=== PATIENT | male | born 1985 | race Caucasian/White ===

== ENCOUNTER 2016-09-16 11:55 | Emergency (ER) | payer OTHER ==
[~2016-09-16] VITALS: Wt 70.0 kg
[~2016-09-16 11:55] MED LIST: HYDR-3498 PO; LOPE2CAP PO; ONDA4TAB8 PO
[2016-09-16] MEDS ORDERED: SOD CHLORIDE 0.9% 1,000 ML IV STA (13:39)
[2016-09-16] MEDS ORDERED: ONDANSETRON 4 MG INJ IV STA (13:39)
[2016-09-16] MEDS ORDERED: LIDOCAINE/MYLANTA 40 ML BTL PO ONE (14:00)
[2016-09-16 14:23] LABS: BASOPHILS % 0.1 % (0.0-2.0); HEMATOCRIT 49.7 % (42.0-52.0); HEMOGLOBIN 17.2 g/dl (14.0-18.0); LYMPHOCYTES # 0.8 10^3/ul (0.8-2.9); LYMPHOCYTES % 10.4 % (15.0-51.0); MEAN CORPUSCULAR HEMOGLOBIN 31.1 pg (29.0-33.0); MEAN CORPUSCULAR HGB CONC 34.6 g/dl (32.0-37.0); MEAN CORPUSCULAR VOLUME 89.9 fl (82.0-101.0); MEAN PLATELET VOLUME 8.8 fl (7.4-10.4); MONOCYTE # 0.3 10^3/ul (0.3-0.9); MONOCYTES % 3.5 % (0.0-11.0); PLATELET COUNT 244 10^3/UL (140-440); RED BLOOD COUNT 5.52 10^6/ul (4.70-6.10); RED CELL DISTRIBUTION WIDTH 11.9 % (11.5-14.5); UNCORRECTED WBC 8.1 10^3/ul (4.8-10.8); WHITE BLOOD COUNT 8.1 10^3/ul (4.8-10.8)
[2016-09-16 14:25] LABS: CONDITION 1
[2016-09-16 14:34] LABS: ALBUMIN 4.9 g/dl (3.3-4.9); POTASSIUM 4.3 mmol/L (3.5-5.1)
[2016-09-16 14:36] LABS: BILIRUBIN,INDIRECT 0.4 mg/dl (0-1.1); BILIRUBIN,TOTAL 0.4 mg/dl (0.2-1.3); CREATININE 0.84 mg/dl (0.61-1.24)
[2016-09-16 14:37] LABS: ALBUMIN/GLOBULIN RATIO 1.44; CALCIUM 10.2 mg/dl (8.4-10.2); TOTAL PROTEIN 8.3 g/dl (6.1-8.1)
[2016-09-16] MEDS ORDERED: ONDA8TAB14 PO (14:53)
[2016-09-16] MEDS ORDERED: ACET500C5 PO (14:53)
--- NOTE | 2016-09-16 15:04 | ERD ---
ER Documentation Chief Complaint Date/Time DATE: 09/16/16 TIME: 15:02 Chief Complaint VOMITING SINCE LAST NIGHT NO ABDOMINAL PAIN, NO DIARRHEA NOTED HPI This 31-year-old male complains of vomiting since late last night with epigastric abdominal pain. Patient admits to drinking approximately 18 beers last night. Denies diarrhea, fevers, blood. Denies any right-sided or lower abdominal pain. Denies any foreign travel or sick contacts. ROS All systems reviewed and are negative except as per history of present illness. Medications Home Meds Active Scripts Acetaminophen* (Tylophen*) 500 Mg Capsule, 1 CAP PO Q6H Y for PAIN AND OR ELEVATED TEMP, #10 CAP Prov:TEE FISHMAN MD 09/16/16 Ondansetron (Ondansetron Odt) 8 Mg Tab.rapdis, 8 MG PO Q6H Y for NAUSEA AND/OR VOMITING, #8 TAB Prov:TEE FISHMAN MD 09/16/16 Ondansetron Hcl* (Zofran*) 4 Mg Tablet, 4 MG PO Q6H for NAUSEA AND/OR VOMITING, #30 TAB Prov:Kaylah Rodriguez PA-C 05/27/16 Hydrocodone Bit-Acetaminophen* ([place]*) 5-325 Mg Tab, 1 TAB PO Q6 Y for PAIN, # 7 TAB Prov:GEORGE MILLER DO 02/20/16 Loperamide Hcl* (Imodium*) 2 Mg Capsule, 2 MG PO .AFTER EA LOOSE BM Y for DIARRHEA, #10 TAB Prov:GEORGE MILLER DO 02/20/16 Allergies Allergies: Coded Allergies: No Known Drug Allergies (Verified Allergy, Unknown, 02/20/16) PMhx/Soc Medical and Surgical Hx: pt denies Medical Hx, pt denies Surgical Hx History of Surgery: No Anesthesia Reaction: No Hx Neurological Disorder: No Hx Respiratory Disorders: No Hx Cardiac Disorders: No Hx Psychiatric Problems: No Hx Miscellaneous Medical Probl: No Hx Alcohol Use: Yes (LAST NIGHT) Hx Substance Use: Yes (MARIJUANA YESTERDAY) Hx Tobacco Use: Yes Smoking Status: Current every day smoker Physical Exam Vitals Vital Signs Date Time Temp Pulse Resp B/P Pulse Ox O2 Delivery O2 Flow Rate FiO2 09/16/16 11:59 98.1 63 22 140/89 96 Physical Exam Const: [] Alert, [id number] Head: Atraumatic Eyes: Normal Conjunctiva ENT: Normal External Ears, Nose and Mouth. Neck: Full range of motion..~ No meningismus. Resp: Clear to auscultation bilaterally Cardio: Regular rate and rhythm, no murmurs Abd: Soft, minimal epigastric tenderness, non distended. Normal bowel sounds Skin: No petechiae or rashes Back: No midline or flank tenderness Ext: No cyanosis, or edema Neur: Awake and alert Psych: Normal Mood and Affect Result Diagram: 09/16/16 1357 09/16/16 1357 Results 24 hrs Laboratory Tests Test 09/16/16 13:57 Alanine Aminotransferase (ALT/SGPT) 45IU/L Albumin 4.9g/dl Albumin/Globulin Ratio 1.44 Alkaline Phosphatase 101IU/L Anion Gap 21 Aspartate Amino Transf (AST/SGOT) 48IU/L Basophils # 0.010^3/ul Basophils % 0.1% Blood Urea Nitrogen 15mg/dl Calcium Level 10.2mg/dl Carbon Dioxide Level 29mmol/L Chloride Level 100mmol/L Creatinine 0.84mg/dl Direct Bilirubin 0.00mg/dl Eosinophils # 0.010^3/ul Eosinophils % 0.0% Globulin 3.40g/dl Glucose Level 126mg/dl Hematocrit 49.7% Hemoglobin 17.2g/dl Indirect Bilirubin 0.4mg/dl Lipase 129U/L Lymphocytes # 0.810^3/ul Lymphocytes % 10.4% Mean Corpuscular Hemoglobin 31.1pg Mean Corpuscular Hemoglobin Concent 34.6g/dl Mean Corpuscular Volume 89.9fl Mean Platelet Volume 8.8fl Monocytes # 0.310^3/ul Monocytes % 3.5% Neutrophils # 7.010^3/ul Neutrophils % 86.0% Nucleated Red Blood Cells # 0.010^3/ul Nucleated Red Blood Cells % 0.0/100WBC Platelet Count 62034^3/UL Potassium Level 4.3mmol/L Red Blood Count 5.5210^6/ul Red Cell Distribution Width 11.9% Sodium Level 146mmol/L Total Bilirubin 0.4mg/dl Total Protein 8.3g/dl White Blood Count 8.110^3/ul Current Medications Medications (Trade) Dose Ordered Sig/Js Route PRN Reason Start Time Stop Time Status Last Admin Dose Admin Sodium Chloride (NS) 1,000 ml @ 1,000 mls/hr Q1H STAT IV 09/16/16 13:39 09/16/16 14:38 DC 09/16/16 14:01 Ondansetron HCl (Zofran Inj) 4 mg ONCE STAT IV 09/16/16 13:39 09/16/16 13:42 DC 09/16/16 14:01 Miscellaneous Medication (Gi Cocktail (2)) 40 ml ONCE ONCE PO 09/16/16 14:00 09/16/16 14:02 DC 09/16/16 14:01 Procedures/MDM Patient presents with vomiting and epigastric abdominal pain. An IV was obtained patient was given Zofran 4 mg IV, GI cocktail CBC shows no acute abnormalities and CMP and lipase showed no acute abnormalities. Patient has benign abdomen on serial exam. Patient likely has symptoms due to alcohol intoxication or acute withdrawal symptoms. There is no signs or symptoms of delirium tremens, acute abdomen, obstruction, bleeding or sepsis. Patient will be discharged home with a course of Zofran, and Tylenol instructions for clear fluids, rest and avoid alcohol use. The patient was stable with no new complaints during the ER course. Clinically, there is no current evidence to suggest meningitis, sepsis, acute abdomen, pneumonia, acute coronary syndrome, pulmonary embolism, or any other emergent condition appearing to require further evaluation or hospitalization. The patient should certainly return for any new or worsening symptoms per the aftercare instructions. They should otherwise follow-up with her primary care doctor for reevaluation this week. Departure Diagnosis: Primary Impression: Abdominal pain Abdominal location: epigastric Qualified Code: R10.13 - Epigastric pain Additional Impression: Vomiting Vomiting type: unspecified Vomiting Intractability: non-intractable Nausea presence: with nausea Qualified Code: R11.2 - Non-intractable vomiting with nausea, unspecified vomiting type Condition: Stable Patient Instructions: Alcohol Overdose, Vomiting (6Y-Adult) Additional Instructions: Drink plenty of fluids and rest at home. Avoid alcohol use. Recheck for fevers , blood, new symptoms TEE FISHMAN MD Sep 16, 2016 15:04
[2016-09-16 15:22] VITALS: BP 136/90; PULSE 67; RESP 18; TEMP 98
[2016-09-16] MEDS ORDERED: FAMO-18 PO (19:50)
== END 2016-09-16 15:22 | disposition home or self-care (01) ==
LOC: FTE 11:55
DX: R10.13 Epigastric pain (principal); R11.2 Nausea with vomiting, unspecified; F17.210 Nicotine dependence, cigarettes, uncomplicated
CPT/HCPCS: 36415; 80053; 83690; 85025; 96374; J2405; J7030; Z7502; Z7610

== ENCOUNTER 2016-09-16 17:32 | Emergency (ER) | payer OTHER ==
[~2016-09-16] VITALS: Wt 77.0 kg
[~2016-09-16 17:32] MED LIST changes: +ACET500C5 PO; +ONDA8TAB14 PO
[2016-09-16] MEDS ORDERED: ONDANSETRON 4 MG INJ IM STA (18:24)
[2016-09-16] MEDS ORDERED: FAMOTIDINE 20 MG TAB PO ONE (18:30)
[2016-09-16] MEDS ORDERED: LIDOCAINE/MYLANTA 40 ML BTL PO ONE (18:30)
[2016-09-16] MEDS ORDERED: FAMO-18 PO (19:50)
--- NOTE | 2016-09-16 19:55 | ERD ---
ER Documentation Chief Complaint Date/Time DATE: 09/16/16 TIME: 19:51 Chief Complaint VOMITING FOR THE PAST DAY. NO RELEIF WITH IV FLUIDS. CONTINUED VOMITING HPI 31-year-old male with a past medical history of alcoholism presents to the ED for nausea and vomiting. States that he had one episode of nonbilious nonbloody vomiting after being discharged here in the hospital. Patient states that he was seen here earlier today and stated that he had no relief with taking Zofran at home. Reports that he has been drinking 12 cans of beer last night. States that when he drinks, he binge drinks peers. Reports that this is not daily. Denies any abdominal pain, chest pain, shortness of breath, wheezing, cough, fever, chills. States that earlier today when he drank the GI cocktail, it helped his symptoms tremendously. ROS All systems reviewed and are negative except as per history of present illness. Medications Home Meds Active Scripts Famotidine* (Pepcid*) 20 Mg Tablet, 20 MG PO BID, #30 TAB Prov:AMPARO WONG PA-C 09/16/16 Acetaminophen* (Tylophen*) 500 Mg Capsule, 1 CAP PO Q6H Y for PAIN AND OR ELEVATED TEMP, #10 CAP Prov:TEE PUGA MD 09/16/16 Ondansetron (Ondansetron Odt) 8 Mg Tab.rapdis, 8 MG PO Q6H Y for NAUSEA AND/OR VOMITING, #8 TAB Prov:TEE PUGA MD 09/16/16 Ondansetron Hcl* (Zofran*) 4 Mg Tablet, 4 MG PO Q6H for NAUSEA AND/OR VOMITING, #30 TAB Prov:Kaylah Rodriguez PA-C 05/27/16 Hydrocodone Bit-Acetaminophen* ([place]*) 5-325 Mg Tab, 1 TAB PO Q6 Y for PAIN, # 7 TAB Prov:GEORGE MILLER DO 02/20/16 Loperamide Hcl* (Imodium*) 2 Mg Capsule, 2 MG PO .AFTER EA LOOSE BM Y for DIARRHEA, #10 TAB Prov:GEORGE MILLER DO 02/20/16 Allergies Allergies: Coded Allergies: No Known Drug Allergies (Verified Allergy, Unknown, 02/20/16) PMhx/Soc Medical and Surgical Hx: pt denies Medical Hx, pt denies Surgical Hx History of Surgery: No Anesthesia Reaction: No Hx Neurological Disorder: No Hx Respiratory Disorders: No Hx Cardiac Disorders: No Hx Psychiatric Problems: No Hx Miscellaneous Medical Probl: No Hx Alcohol Use: Yes (LAST NIGHT) Hx Substance Use: Yes (MARIJUANA YESTERDAY) Hx Tobacco Use: Yes Smoking Status: Current every day smoker Physical Exam Vitals Vital Signs Date Time Temp Pulse Resp B/P Pulse Ox O2 Delivery O2 Flow Rate FiO2 09/16/16 18:03 98.8 76 20 154/85 98 Physical Exam Const: [id number], well-nourished. In no acute distress. Head: Atraumatic, normocephalic Eyes: Normal Conjunctiva without injection. No purulent discharge. ENT: Normal external ear, nose. Moist oropharynx without tonsillar exudates. Non -erythematous pharynx. Uvula midline. No drooling. No trismus. Neck: No cervical midline tenderness. Full range of motion. No meningismus. No cervical lymphadenopathy. No JVD. Resp: Clear to auscultation bilaterally. No wheezing, rhonchi, rales, or crackles. No accessory muscle use. No retractions. Cardio: Regular rate and rhythm. No murmurs, rubs or gallops. Abd: Soft, nontender, non distended. Normal bowel sounds. No palpable masses. No rebound tenderness. No guarding. Negative McBurney's point. Negative psoas sign. Negative obturator sign. Skin: No petechiae or rashes Back: No midline tenderness. No CVA tenderness. Ext: No cyanosis, or edema. Neur: Awake and alert. Normal gait. Normal coordination. Psych: Normal Mood and Affect Results 24 hrs Current Medications Medications (Trade) Dose Ordered Sig/Js Route PRN Reason Start Time Stop Time Status Last Admin Dose Admin Famotidine (Pepcid) 20 mg ONCE ONCE PO 09/16/16 18:30 09/16/16 18:31 DC 09/16/16 19:33 Miscellaneous Medication (Gi Cocktail (2)) 40 ml ONCE ONCE PO 09/16/16 18:30 09/16/16 18:31 DC 09/16/16 19:32 Ondansetron HCl (Zofran Inj) 4 mg ONCE STAT IM 09/16/16 18:24 09/16/16 18:27 DC 09/16/16 19:32 Procedures/MDM 31-year-old male with a past medical history of alcoholism presents to the ED complaining of nausea and vomiting after drinking beers last night. Patient is afebrile and nontoxic-appearing. Patient has normal vital signs. This case was discussed with my supervising physician, Dr. Yovana juarez who also saw patient earlier today. We treated patient here in the ED with 4 mg IM Zofran, GI cocktail, famotidine with relief of his symptoms. Patient had a successful p.o. challenge. Low suspicion for gastritis, GERD, peptic ulcer disease, cholecystitis, choledocholithiasis, cholangitis, pancreatitis, appendicitis, bowel obstruction, ileus, volvulus, nephrolithiasis, pyelonephritis, hepatitis, perforated viscus, diverticulitis, abdominal hernia, acute abdomen, mesenteric ischemia or other emergent conditions. Discharge medications: Famotidine. Take Tylenol and Zofran as needed which was prescribed by Dr. Puga, who saw patient earlier today. Follow up with primary care physician in 1-2 days for referral to supervisor lens generating. Instructed patient to return to the ED sooner for any worsening symptoms. Patient's questions were answered. Patient understood and agreed with discharge plan. Patient discharged stable. Departure Diagnosis: Primary Impression: Alcohol overdose Encounter type: initial encounter Injury intent: undetermined intent Qualified Code: T51.94XA - Alcohol overdose, undetermined intent, initial encounter Additional Impression: Nausea and vomiting Vomiting type: unspecified Vomiting Intractability: unspecified Qualified Code: R11.2 - Nausea and vomiting, intractability of vomiting not specified, unspecified vomiting type Condition: Stable Patient Instructions: Signs of Alcohol Addiction (Alcoholism), Alcoholism: Getting Help, Nausea and Vomiting-Adult, Alcohol Overdose Referrals: COMMUNITY CLINICS YOU HAVE RECEIVED A MEDICAL SCREENING EXAM AND THE RESULTS INDICATE THAT YOU DO NOT HAVE A CONDITION THAT REQUIRES URGENT TREATMENT IN THE EMERGENCY DEPARTMENT. FURTHER EVALUATION AND TREATMENT OF YOUR CONDITION CAN WAIT UNTIL YOU ARE SEEN IN YOUR DOCTORS OFFICE WITHIN THE NEXT 1-2 DAYS. IT IS YOUR RESPONSIBILITY TO MAKE AN APPOINTMENT FOR FOLOW-UP CARE. IF YOU HAVE A PRIMARY DOCTOR --you should call your primary doctor and schedule an appointment IF YOU DO NOT HAVE A PRIMARY DOCTOR YOU CAN CALL OUR PHYSICIAN REFERRAL HOTLINE AT IF YOU CAN NOT AFFORD TO SEE A PHYSICIAN YOU CAN CHOSE FROM THE FOLLOWING [facility] CL[facility] [address] [facility] [address] [facility] [address] [facility] [address] [facility] [address] [facility] [facility]. [address] [facility]. [facility] YOU HAVE RECEIVED A MEDICAL SCREENING EXAM AND THE RESULTS INDICATE THAT YOU DO NOT HAVE A CONDITION THAT REQUIRES URGENT TREATMENT IN THE EMERGENCY DEPARTMENT. FURTHER EVALUATION AND TREATMENT OF YOUR CONDITION CAN WAIT UNTIL YOU ARE SEEN IN YOUR DOCTORS OFFICE WITHIN THE NEXT 1-2 DAYS. IT IS YOUR RESPONSIBILITY TO MAKE AN APPOINTMENT FOR FOLOW-UP CARE. IF YOU HAVE A PRIMARY DOCTOR --you should call your primary doctor and schedule and appointment IF YOU DO NOT HAVE A PRIMARY DOCTOR YOU CAN CALL OUR PHYSICIAN REFERRAL HOTLINE AT . IF YOU CAN NOT AFFORD TO SEE A PHYSICIAN YOU CAN CHOSE FROM THE FOLLOWING [facility]: [facility] [address] [place] [address] [facility] [address] [place] [address] [facility] [address] [place] [address] [facility] URGENT CARE/SPECIALTIES Additional Instructions: FOLLOW UP WITH YOUR PRIMARY CARE PHYSICIAN TOMORROW.Return to this facility if you are not improving as expected. AMPARO WONG PA-C Sep 16, 2016 19:55
== END 2016-09-16 20:04 | disposition home or self-care (01) ==
LOC: FTE 17:32
DX: T51.94XA Toxic effect of unspecified alcohol, undetermined, initial encounter (principal); F17.210 Nicotine dependence, cigarettes, uncomplicated
CPT/HCPCS: 96372; J2405; Z7502; Z7610

== ENCOUNTER 2016-10-22 06:46 | Emergency (ER) | payer OTHER ==
[~2016-10-22] VITALS: Ht 175.3 cm; Wt 76.5 kg
[~2016-10-22 06:46] MED LIST changes: +FAMO-18 PO
[2016-10-22 06:48] VITALS: Ht 175.3 cm; Wt 76.5 kg
[2016-10-22] MEDS ORDERED: ONDANSETRON 4 MG INJ IM STA (07:41)
[2016-10-22] MEDS ORDERED: METOCLOPRAMIDE 10 MG INJ IV ONE (08:30)
[2016-10-22] MEDS ORDERED: SOD CHLORIDE 0.9% 500 ML IV ONE ×2 (09:00→10:00)
--- NOTE | 2016-10-22 09:13 | ERD ---
ER Documentation Chief Complaint Date/Time DATE: 10/22/16 TIME: 09:11 Chief Complaint vomiting since last night HPI Is a 31-year-old male who presents to the emergency department today complaining of vomiting and diarrhea that started last night. Patient states he drank 5 beers and had some papusas. States he has a history of gastritis for which she is not taking medication. Denies any fevers or chills or abdominal pain. ROS All systems reviewed and are negative except as per history of present illness. Medications Home Meds Active Scripts Loperamide Hcl* (Imodium*) 2 Mg Capsule, 2 MG PO .AFTER EA LOOSE BM Y for DIARRHEA, #10 TAB Prov:KATLYN NEWTON PA-C 10/22/16 Famotidine* (Pepcid*) 20 Mg Tablet, 20 MG PO BID for 14 Days, TAB Prov:KATLYN NEWTON PA-C 10/22/16 Electrolyte,Oral (Pedialyte) 1,000 Ml Solution, 100 ML PO Q6 Y for VOMITTING, # 1000 ML Prov:KATLYN NEWTON PA-C 10/22/16 Ondansetron Hcl* (Zofran*) 4 Mg Tablet, 4 MG PO Q6H for NAUSEA AND/OR VOMITING, #30 TAB Prov:KATLYN NEWTON PA-C 10/22/16 Famotidine* (Pepcid*) 20 Mg Tablet, 20 MG PO BID, #30 TAB Prov:AMPARO WONG PA-C 09/16/16 Acetaminophen* (Tylophen*) 500 Mg Capsule, 1 CAP PO Q6H Y for PAIN AND OR ELEVATED TEMP, #10 CAP Prov:TEE FISHMAN MD 09/16/16 Ondansetron (Ondansetron Odt) 8 Mg Tab.rapdis, 8 MG PO Q6H Y for NAUSEA AND/OR VOMITING, #8 TAB Prov:TEE FISHMAN MD 09/16/16 Ondansetron Hcl* (Zofran*) 4 Mg Tablet, 4 MG PO Q6H for NAUSEA AND/OR VOMITING, #30 TAB Prov:Kaylah Rodriguez PA-C 05/27/16 Hydrocodone Bit-Acetaminophen* ([place]*) 5-325 Mg Tab, 1 TAB PO Q6 Y for PAIN, # 7 TAB Prov:GEORGE MILLER DO 02/20/16 Loperamide Hcl* (Imodium*) 2 Mg Capsule, 2 MG PO .AFTER EA LOOSE BM Y for DIARRHEA, #10 TAB Prov:GEORGE MILLER DO 02/20/16 Allergies Allergies: Coded Allergies: No Known Drug Allergies (Verified Allergy, Unknown, 02/20/16) PMhx/Soc History of Surgery: No Anesthesia Reaction: No Hx Neurological Disorder: No Hx Respiratory Disorders: No Hx Cardiac Disorders: No Hx Psychiatric Problems: No Hx Miscellaneous Medical Probl: No (PT. DENIES MEDICAL AND SURGICAL HX.) Hx Alcohol Use: Yes (OCC) Hx Substance Use: Yes (MARIJUANA) Hx Tobacco Use: Yes Smoking Status: Current every day smoker Physical Exam Vitals Vital Signs Date Time Temp Pulse Resp B/P Pulse Ox O2 Delivery O2 Flow Rate FiO2 10/22/16 11:14 98.7 55 16 152/84 98 Room Air 10/22/16 06:48 98.1 62 18 133/88 99 Physical Exam Const: Actively vomiting, no acute distress Head: Atraumatic Eyes: Normal Conjunctiva ENT: Normal External Ears, Nose and Mouth. Neck: Full range of motion..~ No meningismus. Resp: Clear to auscultation bilaterally Cardio: Regular rate and rhythm, no murmurs Abd: Soft, mild epigastric tenderness non distended. Normal bowel sounds. No right lower quadrant pain. No right upper quadrant pain. Skin: No petechiae or rashes Neur: Awake and alert Psych: Normal Mood and Affect Result Diagram: 10/22/16 1010 10/22/16 1010 Results 24 hrs Laboratory Tests Test 10/22/16 10:10 Alanine Aminotransferase (ALT/SGPT) 35IU/L Albumin 5.0g/dl Albumin/Globulin Ratio 1.66 Alkaline Phosphatase 75IU/L Anion Gap 20 Aspartate Amino Transf (AST/SGOT) 40IU/L Basophils # 0.010^3/ul Basophils % 0.4% Blood Urea Nitrogen 15mg/dl Calcium Level 10.2mg/dl Carbon Dioxide Level 27mmol/L Chloride Level 102mmol/L Creatinine 0.75mg/dl Direct Bilirubin 0.00mg/dl Eosinophils # 0.010^3/ul Eosinophils % 0.0% Globulin 3.00g/dl Glucose Level 117mg/dl Hematocrit 45.4% Hemoglobin 15.7g/dl Indirect Bilirubin 0.7mg/dl Lipase 112U/L Lymphocytes # 0.710^3/ul Lymphocytes % 8.5% Mean Corpuscular Hemoglobin 30.8pg Mean Corpuscular Hemoglobin Concent 34.6g/dl Mean Corpuscular Volume 89.0fl Mean Platelet Volume 10.1fl Monocytes # 0.310^3/ul Monocytes % 4.0% Neutrophils # 7.310^3/ul Neutrophils % 86.9% Nucleated Red Blood Cells # 0.010^3/ul Nucleated Red Blood Cells % 0.0/100WBC Platelet Count 01698^3/UL Potassium Level 3.7mmol/L Red Blood Count 5.1010^6/ul Red Cell Distribution Width 11.8% Sodium Level 145mmol/L Total Bilirubin 0.7mg/dl Total Protein 8.0g/dl White Blood Count 8.410^3/ul Current Medications Medications (Trade) Dose Ordered Sig/Js Route PRN Reason Start Time Stop Time Status Last Admin Dose Admin Ondansetron HCl (Zofran Inj) 4 mg ONCE STAT IM 10/22/16 07:41 10/22/16 07:42 DC 10/22/16 07:46 Metoclopramide HCl 10 mg 10 mg ONCE ONCE IV 10/22/16 08:30 10/22/16 08:31 DC 10/22/16 08:39 Sodium Chloride (NS) 500 ml @ 500 mls/hr Q1H ONCE IV 10/22/16 09:00 10/22/16 09:59 DC 10/22/16 08:55 Famotidine (Pepcid Iv) 20 mg ONCE ONCE IV 10/22/16 09:30 10/22/16 09:31 DC 10/22/16 09:29 Ondansetron HCl (Zofran Inj) 4 mg ONCE STAT IV 10/22/16 09:49 10/22/16 09:51 DC 10/22/16 09:59 Diphenhydramine HCl 25 mg 25 mg ONCE ONCE IV 10/22/16 10:00 10/22/16 10:01 DC 10/22/16 09:58 Sodium Chloride (NS) 500 ml @ 500 mls/hr Q1H ONCE IV 10/22/16 10:00 10/22/16 10:59 DC 10/22/16 09:59 Procedures/MDM This 31-year-old male who presents the emergency department today for vomiting and diarrhea. Patient was actively vomiting in the exam room. I did attempt to give the patient Zofran intramuscularly however patient vomiting persisted. Patient was requesting an IV stating he felt dehydrated. I did end up placing IV and give the patient fluids, Reglan IV and Pepcid. Patient stopped vomiting for a period of time but when he woke up he started vomiting again. He was then given Benadryl and IV Zofran and another half liter of fluids. Patient indicated that he does drink 5 beers on a daily basis and given his persistent vomiting I did draw labs Laboratory work shows no elevated white blood cell count. He is not anemic. Platelets are within normal limits. Sodium is very mildly elevated otherwise electrolytes are within normal limits. This is within normal limits. Lipase is within normal limits. Liver functions within normal limits. Patient symptoms at this time is consistent with vomiting and diarrhea. Other differentials to consider gastritis exacerbation. Patient had no right upper quadrant pain on physical exam. He has no right lower quadrant pain or no tenderness at McBurney's and I do not feel the patient required imaging at this time. Low suspicion for acute surgical abdomen, pancreatitis, acute cholecystitis. Patient was sitting up and had a p.o. challenge and had no vomiting. Patient was requesting to go home. Patient was given a prescription for Pepcid, Zofran , Imodium, Pedialyte. Patient was instructed on alcohol cessation. At this time the patient is stable for discharge and outpatient management. Patient should follow up with their PCP in the next 1-2 days. They may return to the emergency department sooner for any persistent or worsening of symptoms. Patient understood and agreed with the plan. Departure Diagnosis: Primary Impression: Vomiting Vomiting type: unspecified Vomiting Intractability: non-intractable Nausea presence: with nausea Qualified Code: R11.2 - Non-intractable vomiting with nausea, unspecified vomiting type Condition: KATLYN Marcano PA-C Oct 22, 2016 09:13
[2016-10-22] MEDS ORDERED: FAMOTIDINE 20 MG INJ IV ONE (09:30)
[2016-10-22] MEDS ORDERED: ONDANSETRON 4 MG INJ IV STA (09:49)
[2016-10-22] MEDS ORDERED: DIPHENHYDRAMINE 50 MG INJ IV ONE (10:00)
[2016-10-22 10:21] LABS: ADD SCAN DIFF NO
[2016-10-22 10:24] LABS: BASOPHILS % 0.4 % (0.0-2.0); HEMATOCRIT 45.4 % (42.0-52.0); HEMOGLOBIN 15.7 g/dl (14.0-18.0); LYMPHOCYTES # 0.7 10^3/ul (0.8-2.9); LYMPHOCYTES % 8.5 % (15.0-51.0); MEAN CORPUSCULAR HEMOGLOBIN 30.8 pg (29.0-33.0); MEAN CORPUSCULAR HGB CONC 34.6 g/dl (32.0-37.0); MEAN PLATELET VOLUME 10.1 fl (7.4-10.4); MONOCYTE # 0.3 10^3/ul (0.3-0.9); NEUTROPHIL # 7.3 10^3/ul (1.6-7.5); NEUTROPHILS % 86.9 % (39.0-77.0); PLATELET COUNT 247 10^3/UL (140-415); RED CELL DISTRIBUTION WIDTH 11.8 % (11.5-14.5); WHITE BLOOD COUNT 8.4 10^3/ul (4.8-10.8)
[2016-10-22 10:39] LABS: POTASSIUM 3.7 mmol/L (3.5-5.1)
[2016-10-22 10:41] LABS: ALBUMIN/GLOBULIN RATIO 1.66; BILIRUBIN,INDIRECT 0.7 mg/dl (0-1.1); BILIRUBIN,TOTAL 0.7 mg/dl (0.2-1.3); CREATININE 0.75 mg/dl (0.61-1.24)
[2016-10-22 10:42] LABS: CALCIUM 10.2 mg/dl (8.4-10.2)
[2016-10-22] MEDS ORDERED: ONDA4TAB8 PO (12:45)
[2016-10-22] MEDS ORDERED: FAMO-18 PO (12:46)
[2016-10-22] MEDS ORDERED: ELEC100080 PO (12:46)
[2016-10-22] MEDS ORDERED: LOPE2CAP PO (12:47)
[2016-10-22 13:05] VITALS: BP 160/90; PULSE 94; RESP 16; TEMP 98.7
== END 2016-10-22 13:07 | disposition home or self-care (01) ==
LOC: FTE 06:46
DX: R11.2 Nausea with vomiting, unspecified (principal); F17.210 Nicotine dependence, cigarettes, uncomplicated
CPT/HCPCS: 80053; 83690; 85025; 96361; 96372; 96374; 96375; J1200; J2405; J2765; J7040; Z7502; Z7610

== ENCOUNTER 2017-04-08 07:08 | Emergency (ER) | payer OTHER ==
[~2017-04-08] VITALS: Ht 177.8 cm; Wt 75.0 kg
[~2017-04-08 07:08] MED LIST changes: +ELEC100080 PO; -FAMO-18 PO; +FAMO-96 PO
[2017-04-08 07:10] VITALS: Ht 177.8 cm; Wt 75.0 kg
--- NOTE | 2017-04-08 07:25 | ERD ---
ER Documentation Chief Complaint Date/Time DATE: 04/08/17 TIME: 07:23 Chief Complaint pt bib self with c/o vomiting and abd pain since 2 am HPI 31-year-old male who presents emergency department for epigastric pain that started 2 AM at 2 AM. Vomited couple of times since 2 AM. Had a diarrhea couple of times since last night. Has history of alcoholism however stating that his last intake of alcohol was last week. Denies headache, loss of consciousness, dizziness, blurry vision, changes in vision, photophobia, facial pain, ear pain, throat pain, difficulty swallowing, neck pain, shoulder pain, chest pain, cough, hemoptysis, back pain, loss of appetite, hematochezia, constipation, urinary symptoms, bladder and bowel incontinences, extremity weakness, extremity tenderness, numbness or tingling sensation, difficulty walking, recent travel, recent exposure to illness, recent antibiotic use in the last 3 months, fever, chills. Allergy: No known drug allergies. PMH: Denies Medications: Denies Surgery: Denies Primary Social History: Works at a car [employer]. Smokes 5 sticks of cigarettes a day. Denies use of illegal drugs. Denies smoking, use of alcohol, use of illegal drugs. ROS All systems reviewed and are negative except as per history of present illness. Medications Home Meds Active Scripts Acetaminophen* (Tylophen*) 500 Mg Capsule, 1 CAP PO Q6H Y for PAIN AND OR ELEVATED TEMP, #20 CAP Prov:PASILABANRAKAN F 04/08/17 Ondansetron Hcl* (Zofran*) 4 Mg Tablet, 4 MG PO Q8H Y for NAUSEA AND/OR VOMITING , #30 TAB Prov:PASILABANRAKAN F 04/08/17 Famotidine* (Pepcid*) 20 Mg Tablet, 40 MG PO DAILY for 30 Days, TAB Prov:PASILABANRAKAN F 04/08/17 Loperamide Hcl* (Imodium*) 2 Mg Capsule, 2 MG PO .AFTER EA LOOSE BM Y for DIARRHEA, #10 TAB Prov:KATLYN NEWTON PA-C 10/22/16 Famotidine* (Pepcid*) 20 Mg Tablet, 20 MG PO BID for 14 Days, TAB Prov:KATLYN NEWTON PA-C 10/22/16 Electrolyte,Oral (Pedialyte) 1,000 Ml Solution, 100 ML PO Q6 Y for VOMITTING, # 1000 ML Prov:KATLYN NEWTON PA-C 10/22/16 Ondansetron Hcl* (Zofran*) 4 Mg Tablet, 4 MG PO Q6H for NAUSEA AND/OR VOMITING, #30 TAB Prov:KATLYN NEWTON PA-C 10/22/16 Famotidine* (Pepcid*) 20 Mg Tablet, 20 MG PO BID, #30 TAB Prov:AMPARO WONG PA-C 09/16/16 Acetaminophen* (Tylophen*) 500 Mg Capsule, 1 CAP PO Q6H Y for PAIN AND OR ELEVATED TEMP, #10 CAP Prov:TEE FISHMAN MD 09/16/16 Ondansetron (Ondansetron Odt) 8 Mg Tab.rapdis, 8 MG PO Q6H Y for NAUSEA AND/OR VOMITING, #8 TAB Prov:TEE FISHMAN MD 09/16/16 Ondansetron Hcl* (Zofran*) 4 Mg Tablet, 4 MG PO Q6H for NAUSEA AND/OR VOMITING, #30 TAB Prov:Kaylah Rodriguez PA-C 05/27/16 Hydrocodone Bit-Acetaminophen* ([place]*) 5-325 Mg Tab, 1 TAB PO Q6 Y for PAIN, # 7 TAB Prov:GEORGE MILLER DO 02/20/16 Loperamide Hcl* (Imodium*) 2 Mg Capsule, 2 MG PO .AFTER EA LOOSE BM Y for DIARRHEA, #10 TAB Prov:GEORGE MILLER DO 02/20/16 Allergies Allergies: Coded Allergies: No Known Drug Allergies (Verified Allergy, Unknown, 02/20/16) PMhx/Soc History of Surgery: No Anesthesia Reaction: No Hx Neurological Disorder: No Hx Respiratory Disorders: No Hx Cardiac Disorders: No Hx Psychiatric Problems: No Hx Miscellaneous Medical Probl: No (PT. DENIES MEDICAL AND SURGICAL HX.) Hx Alcohol Use: Yes (last intake last night 6 pack) Hx Substance Use: Yes (MARIJUANA) Hx Tobacco Use: Yes Physical Exam Vitals Vital Signs Date Time Temp Pulse Resp B/P Pulse Ox O2 Delivery O2 Flow Rate FiO2 04/08/17 07:10 98.3 74 16 136/98 96 Physical Exam Const: [] Head: Atraumatic Eyes: Normal Conjunctiva ENT: Normal External Ears, Nose and Mouth. Neck: Full range of motion..~ No meningismus. Resp: Clear to auscultation bilaterally Cardio: Regular rate and rhythm, no murmurs Abd: Soft, non distended. Normal bowel sounds. Has epigastric tenderness to palpation. No right lower abdominal tenderness to palpation. No CVA tenderness. Skin: No petechiae or rashes Back: No midline or flank tenderness Ext: No cyanosis, or edema Neur: Awake and alert Psych: Normal Mood and Affect Result Diagram: 04/08/17 0741 04/08/17 0741 Results 24 hrs Laboratory Tests Test 04/08/17 07:41 04/08/17 08:05 White Blood Count 10.410^3/ul Red Blood Count 5.4910^6/ul Hemoglobin 17.3g/dl Hematocrit 47.6% Mean Corpuscular Volume 86.7fl Mean Corpuscular Hemoglobin 31.5pg Mean Corpuscular Hemoglobin Concent 36.3g/dl Red Cell Distribution Width 11.3% Platelet Count 40469^3/UL Mean Platelet Volume 10.0fl Neutrophils % 72.4% Lymphocytes % 21.7% Monocytes % 4.2% Eosinophils % 0.9% Basophils % 0.5% Nucleated Red Blood Cells % 0.0/100WBC Neutrophils # (Manual) 7.510^3/ul Lymphocytes # 2.310^3/ul Monocytes # 0.410^3/ul Eosinophils # 0.110^3/ul Basophils # 0.110^3/ul Nucleated Red Blood Cells # 0.010^3/ul Sodium Level 143mmol/L Potassium Level 3.6mmol/L Chloride Level 96mmol/L Carbon Dioxide Level 23mmol/L Anion Gap 28 Blood Urea Nitrogen 20mg/dl Creatinine 0.89mg/dl Glucose Level 171mg/dl Calcium Level 10.5mg/dl Total Bilirubin 1.4mg/dl Direct Bilirubin 0.00mg/dl Indirect Bilirubin 1.4mg/dl Aspartate Amino Transf (AST/SGOT) 52IU/L Alanine Aminotransferase (ALT/SGPT) 57IU/L Alkaline Phosphatase 87IU/L Total Protein 9.0g/dl Albumin 5.4g/dl Globulin 3.60g/dl Albumin/Globulin Ratio 1.50 Amylase Level 71U/L Lipase 145U/L Urine Color YELLOW Urine Clarity SLIGHTLY CLOUDY Urine pH 8.0 Urine Specific [place] 1.024 Urine Ketones 1+mg/dL Urine Nitrite NEGATIVEmg/dL Urine Bilirubin NEGATIVEmg/dL Urine Urobilinogen NEGATIVEmg/dL Urine Leukocyte Esterase NEGATIVELeu/ul Urine Microscopic RBC 1/HPF Urine Microscopic WBC 1/HPF Urine Mucus FEW/HPF Urine Hemoglobin NEGATIVEmg/dL Urine Glucose 1+mg/dL Urine Total Protein 2+mg/dl Urine Opiates Screen Negative Urine Barbiturates Negative Urine Amphetamines Screen Negative Urine Benzodiazepines Screen Negative Urine Cocaine Screen Negative Urine Cannabinoids Positive Current Medications Medications (Trade) Dose Ordered Sig/Js Route PRN Reason Start Time Stop Time Status Last Admin Dose Admin Ondansetron HCl (Zofran Odt) 4 mg ONCE STAT ODT 04/08/17 07:29 04/08/17 07:36 DC Miscellaneous Medication (Gi Cocktail (2)) 40 ml ONCE ONCE PO 04/08/17 07:30 04/08/17 07:36 DC Ondansetron HCl 4 mg 4 mg ONCE STAT IV 04/08/17 07:35 04/08/17 07:37 DC 04/08/17 07:45 Sodium Chloride (NS) 1,000 ml @ 1,000 mls/hr Q1H ONCE IV 04/08/17 08:00 04/08/17 08:59 DC 04/08/17 07:47 Morphine Sulfate (morphine) 4 mg ONCE STAT IV 04/08/17 07:40 04/08/17 07:41 DC 04/08/17 07:44 Metoclopramide HCl (Reglan) 10 mg ONCE ONCE IV 04/08/17 09:00 04/08/17 09:01 DC 04/08/17 08:50 IV Flush 10 ml 10 ml STK-MED ONCE .ROUTE 04/08/17 10:05 04/08/17 10:06 DC Sodium Chloride (NS) 100 ml @ ud STK-MED ONCE .ROUTE 04/08/17 10:05 04/08/17 10:06 DC Iohexol 150 ml 150 ml STK-MED ONCE .ROUTE 04/08/17 10:05 04/08/17 10:06 DC Sodium Chloride (NS) 1,000 ml @ 1,000 mls/hr Q1H ONCE IV 04/08/17 10:30 04/08/17 11:29 04/08/17 10:43 Procedures/MDM Examination: Please see physical examination. Disease process, medical treatment was explained to the patient and family member. They verbalized understanding and agreed with the diagnostic tests, medical treatment, and follow-up care. Radiology: Chest x-ray Impression: Unremarkable chest radiograph series. Abdominal ultrasound Impression: Unremarkable right upper quadrant ultrasound. Blood works: Reviewed. Urinalysis: Reviewed. Treatment: IV insertion. Normal saline IV bolus. Zofran IV. Morphine IV. Reglan. Re-evaluation: Denies headache, dizziness, blurry vision, neck pain, shoulder pain, chest pain, back pain, abdominal pain, nausea, vomiting. No episode of emesis in the emergency department. Alert and oriented 4. Speaks full and clear sentences. Respirations even and unlabored. Lung sounds clear to auscultation. Active bowel sounds. There is no right upper/right lower/ epigastric/left upper/left lower abdominal tenderness and light and deep palpation. Negative on Rovsings sign. Negative Mat sign. Able to jump 5 times without developing right-sided abdominal pain. No peritoneal signs. Ambulatory with steady gait. No neurovascular deficits. No neurological deficits. Consultation: Case was discussed with attending physician, Dr. David Barrett agreed in my medical decision making to discharge the patient. Differential diagnosis: Appendicitis versus cholecystitis versus pancreatitis versus diverticulitis versus gastritis versus gastroenteritis versus urinary tract infection Medical decision [age]-year-old male who presents emergency department for epigastric pain that started 2 AM at 2 AM. Vomited couple of times since 2 AM. Had a diarrhea couple of times since last night. Has history of alcoholism however stating that his last intake of alcohol was last week. Patient's complaint, patient's history about his complaint, my physical findings, diagnostic test results, my reevaluation after treatment are consistent with my final diagnosis of abdominal pain unknown cause, vomiting that has resolved, gastritis. Medications prescribed are the following: Tylenol. Pepcid. Zofran. Patient and family member are made aware of the side effects and adverse reactions of the medications prescribed. Instructed on when to seek emergent and medical attention in case allergic/anaphylactic reactions or severe side effects and or adverse reactions to medications. Patient and family member verbalized understanding. Patient instructed Instructed to follow-up with his PCP in 24-48 hours. Instructed to Call 911 for chest pain, shortness of breath. Advised to come back here in ED as soon as possible for severity of symptoms which includes but not limited to: any new symptoms; shortness of breath/difficulty of breathing; cardiovascular changes; severe gastrointestinal symptoms; signs and symptoms of bleeding and or infection; signs of compartment syndrome/neurovascular changes; neurological changes/deficits. Patient and family member verbalized understanding. Upon discharge, patient is alert and oriented x 4, speaks full and clear sentences, denies pain, has no neurological deficits, has no neurovascular deficits, difficulty of breathing. Breathing even and unlabored. Lung sounds are clear to auscultation. Not in distress. Appears comfortable. Ambulatory with steady gait. Appears satisfied with care provided here in ED. Departure Diagnosis: Primary Impression: Vomiting Additional Impressions: Gastritis Abdominal pain Condition: Stable Additional Instructions: Instructed to follow-up with his PCP in 24-48 hours. Instructed to Call 911 for chest pain, shortness of breath. Advised to come back here in ED as soon as possible for severity of symptoms which includes but not limited to: any new symptoms; shortness of breath/difficulty of breathing; cardiovascular changes; severe gastrointestinal symptoms; signs and symptoms of bleeding and or infection; signs of compartment syndrome/neurovascular changes; neurological changes/deficits. Patient and family member verbalized understanding. RAKAN BLACKWELL Apr 08, 2017 07:25
[2017-04-08] MEDS ORDERED: ONDANSETRON (ODT) 4 MG TAB ODT STA (07:29)
[2017-04-08] MEDS ORDERED: LIDOCAINE/MYLANTA 40 ML BTL PO ONE (07:30)
[2017-04-08] MEDS ORDERED: ONDANSETRON 4 MG INJ IV STA (07:35)
[2017-04-08] MEDS ORDERED: morphine 4 MG/ML VIAL IV STA (07:40)
[2017-04-08] MEDS ORDERED: SOD CHLORIDE 0.9% 1,000 ML IV ONE ×2 (08:00→10:30)
[2017-04-08 08:06] LABS: BASOPHIL # 0.1 10^3/ul (0.0-0.1); BASOPHILS % 0.5 % (0.0-2.0); EOSINOPHILS # 0.1 10^3/ul (0.0-0.5); EOSINOPHILS % 0.9 % (0.0-7.0); HEMATOCRIT 47.6 % (42.0-52.0); HEMOGLOBIN 17.3 g/dl (14.0-18.0); LYMPHOCYTES # 2.3 10^3/ul (0.8-2.9); LYMPHOCYTES % 21.7 % (15.0-51.0); MEAN CORPUSCULAR HEMOGLOBIN 31.5 pg (29.0-33.0); MEAN CORPUSCULAR HGB CONC 36.3 g/dl (32.0-37.0); MEAN CORPUSCULAR VOLUME 86.7 fl (82.0-101.0); MONOCYTE # 0.4 10^3/ul (0.3-0.9); MONOCYTES % 4.2 % (0.0-11.0); NEUTROPHILS % 72.4 % (39.0-77.0); PLATELET COUNT 281 10^3/UL (140-415); RED BLOOD COUNT 5.49 10^6/ul (4.70-6.10); RED CELL DISTRIBUTION WIDTH 11.3 % (11.5-14.5); WHITE BLOOD COUNT 10.4 10^3/ul (4.8-10.8)
--- NOTE | 2017-04-08 08:13 | RADRPT ---
PROCEDURE: Abdominal Ultrasound (right upper quadrant). CLINICAL INDICATION: Epigastric pain TECHNIQUE: Multiple real-time longitudinal and transverse images of the right upper quadrant of th e abdomen were acquired utilizing a curved array transducer. Images were reviewed on a high-resoluti on PACS workstation. COMPARISON: None FINDINGS: The liver is normal in size and echogenicity. No focal masses are identified. There is no evidenc e of intra or extrahepatic ductal dilatation. The common bile duct measures 2.7 mm in diameter. No gallstones or gallbladder wall thickening is seen. The visualized portions of the pancreas are unremarkable with obscuration of the tail of the pancrea s. No free fluid is identified. There is no evidence of right hydronephrosis or renal calcification. The right kidney measures 10.6 cm in length. The visualized portions of the aorta and inferior vena cava are within normal limits. IMPRESSION: 1. Unremarkable right upper quadrant ultrasound. RPTAT: KK .Vamsi Gudino MD, MD Date Time Electronically viewed and signed by .Vamsi Gudino MD, on 04/08/2017 08:13 .B/
[2017-04-08 08:23] LABS: ADD UMIC YES; UR ASCORBIC ACID NEGATIVE (NEGATIVE); UR BILIRUBIN (Dip) NEGATIVE (NEGATIVE); UR BLOOD (Dip) NEGATIVE (NEGATIVE); UR CLARITY SLIGHTLY CLOUDY (CLEAR); UR COLOR YELLOW (YELLOW); UR GLUCOSE (Dip) 1+ mg/dL (NEGATIVE); UR KETONES (Dip) 1+ mg/dL (NEGATIVE); UR LEUKOCYTE ESTERASE (Dip) NEGATIVE Leu/ul (NEGATIVE); UR MUCUS FEW /HPF (NONE SEEN); UR NITRITE (Dip) NEGATIVE (NEGATIVE); UR RBC 1 /HPF (0-5); UR SPECIFIC GRAVITY (Dip) 1.024 (1.003-1.030); UR TOTAL PROTEIN (Dip) 2+ mg/dl (NEGATIVE); UR UROBILINOGEN (Dip) NEGATIVE (NEGATIVE)
--- NOTE | 2017-04-08 08:28 | RADRPT ---
PROCEDURE: Chest radiograph series. CLINICAL INDICATION: Chest pain TECHNIQUE: PA and lateral chest x-ray. COMPARISON: None. FINDINGS: The cardiomediastinal silhouette is unremarkable. The lungs and costophrenic angles are clear. The o sseous structures are unremarkable. IMPRESSION: 1. Unremarkable chest radiograph series. RPTAT: KK .Vamsi Gudino MD, MD Date Time Electronically viewed and signed by .Vamsi Gudino MD, MD on 04/08/2017 08:28 .B/
[2017-04-08 08:31] LABS: ALBUMIN 5.4 g/dl (3.3-4.9); ALBUMIN/GLOBULIN RATIO 1.5; BILIRUBIN,INDIRECT 1.4 mg/dl (0-1.1); BILIRUBIN,TOTAL 1.4 mg/dl (0.2-1.3); CALCIUM 10.5 mg/dl (8.4-10.2); CREATININE 0.89 mg/dl (0.61-1.24); POTASSIUM 3.6 mmol/L (3.5-5.1)
[2017-04-08 08:57] LABS: BARBITURATES Negative (NEGATIVE); BENZODIAZEPINES Negative (NEGATIVE); CANNABINOIDS Positive (NEGATIVE); COCAINE Negative (NEGATIVE); OPIATES Negative (NEGATIVE)
[2017-04-08] MEDS ORDERED: METOCLOPRAMIDE 10 MG INJ IV ONE (09:00)
[2017-04-08] MEDS ORDERED: IOHEXOL 300MG/ML 150 ML BTL ONE (10:05)
[2017-04-08] MEDS ORDERED: SOD CHLORIDE 0.9% 100 ML ONE (10:05)
--- NOTE | 2017-04-08 10:30 | RADRPT ---
PROCEDURE: CT Abdomen and Pelvis with contrast. CLINICAL INDICATION: Epigastric pain TECHNIQUE: CT of the abdomen and pelvis was performed on a multi-detector scanner following the un complicated IV administration of 100 cc of Omnipaque 300. Coronal and sagittal images were reformat nura from the axial data set. One or more of the following dose reduction techniques were used: auto mated exposure control, adjustment of the mA and/or kV according to patient size, use of iterative reconstruction technique. CTDI = 7.98 mGy. DLP = 469.14 mGy-cm. COMPARISON: Ultrasound, 04/08/2017 FINDINGS: CT abdomen: The lung bases are clear. The heart size is normal, without pericardial effusion. Liver demonstrat es a small benign cyst. Gallbladder, biliary tree, pancreas, spleen, adrenal glands and kidneys are unremarkable. No urolithiasis or obstructive uropathy is identified. The stomach is partially col lapsed, but appears grossly unremarkable. There is no abdominal aortic aneurysm or dissection. There is no retroperitoneal lymphadenopathy. The star hepatis region is clear. CT pelvis: No bowel obstruction, free intraperitoneal air or abscess is identified. There is no diverticulosis , diverticulitis or colitis. The appendix is well visualized and normal. Urinary bladder is grossl y unremarkable. No pelvic mass, free fluid or lymphadenopathy is identified. The surrounding osseous structures are unremarkable. No osteolytic or osteoblastic lesion is detect ed. IMPRESSION: 1. Unremarkable CT scan of the abdomen and pelvis. 2. No mass, lymphadenopathy, or focal acute inflammatory process is identified. RPTAT: AA .Miller Maxwell MD, Date Time Electronically viewed and signed by .Miller Maxwell MD, MD on 04/08/2017 10:30 .R/
[2017-04-08] MEDS ORDERED: ONDA4TAB8 PO (11:05)
[2017-04-08] MEDS ORDERED: ACET500C5 PO (11:05)
[2017-04-08] MEDS ORDERED: FAMO-96 PO (11:05)
[2017-04-08 11:21] VITALS: BP 169/90; PULSE 69; RESP 20; TEMP 98.3
[2017-04-08] MEDS ORDERED: ONDA4TAB14 PO (19:23)
== END 2017-04-08 11:30 | disposition home or self-care (01) ==
LOC: FTE 07:08 → E/R 11:30
DX: R11.10 Vomiting, unspecified (principal); K29.70 Gastritis, unspecified, without bleeding; R10.13 Epigastric pain; F17.210 Nicotine dependence, cigarettes, uncomplicated
CPT/HCPCS: 36415; 71020; 74177; 76705; 80053; 80307; 81001; 82150; 83690; 85025; 96361; 96374; 96375; J2270; J2405; J2765; J7030; Q9967; Z7502; Z7610

== ENCOUNTER 2017-05-21 08:06 | Emergency (ER) | payer OTHER ==
[~2017-05-21] VITALS: Ht 175.3 cm; Wt 78.0 kg
[~2017-05-21 08:06] MED LIST changes: +ONDA4TAB14 PO
[2017-05-21 08:08] VITALS: Ht 175.3 cm; Wt 78.0 kg
--- NOTE | 2017-05-21 09:33 | RADRPT ---
PROCEDURE: Right knee x-ray CLINICAL INDICATION: 31-year-old male with painful right knee. TECHNIQUE: AP, lateral and oblique views of the knee were obtained. COMPARISON: No. FINDINGS: The soft tissues and bony elements are normal. No joint space effusion is identified. IMPRESSION: 1. Normal right knee. RPTAT:AAJJ Physician Phillip Date Time Electronically viewed and signed by Augusto Damon Physician on 05/21/2017 09:32 BINA/
[2017-05-21] MEDS ORDERED: ACET500C5 PO (09:37)
--- NOTE | 2017-05-21 09:49 | ERD ---
ER Documentation Chief Complaint Date/Time DATE: 05/21/17 TIME: 09:42 Chief Complaint right kneee pain HPI 31-year-old male patient with a past medical history of alcoholism and gastritis presents to the ED complaining of right knee pain that started yesterday. 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 Patient reports that he is still ambulating without difficulty however feels like there is throbbing pain. Denies any head or neck injuries. Denies falling. Denies any fever, increased swelling, increased redness, decreased range of motion, weakness. Eyes any alcohol use with his right knee injury. ROS All systems reviewed and are negative except as per history of present illness. Medications Home Meds Active Scripts Acetaminophen* (Tylophen*) 500 Mg Capsule, 1 CAP PO Q6H Y for PAIN AND OR ELEVATED TEMP, #20 CAP Prov:AMPARO WONG PA-C 05/21/17 Ondansetron (Ondansetron Odt) 4 Mg Tab.rapdis, 4 MG PO Q6H Y for NAUSEA AND/OR VOMITING, #15 TAB Prov:ASHLEY JHA 04/08/17 Acetaminophen* (Tylophen*) 500 Mg Capsule, 1 CAP PO Q6H Y for PAIN AND OR ELEVATED TEMP, #20 CAP Prov:ESSENCEILARAKAN SCHULTZ F 04/08/17 Ondansetron Hcl* (Zofran*) 4 Mg Tablet, 4 MG PO Q8H Y for NAUSEA AND/OR VOMITING , #30 TAB Prov:PASILARAKAN SCHULTZ F 04/08/17 Famotidine* (Pepcid*) 20 Mg Tablet, 40 MG PO DAILY for 30 Days, TAB Prov:PASILABANPEGGYAR F 04/08/17 Loperamide Hcl* (Imodium*) 2 Mg Capsule, 2 MG PO .AFTER EA LOOSE BM Y for DIARRHEA, #10 TAB Prov:KATLYN NEWTON PA-C 10/22/16 Famotidine* (Pepcid*) 20 Mg Tablet, 20 MG PO BID for 14 Days, TAB Prov:KATLYN NEWTON PA-C 10/22/16 Electrolyte,Oral (Pedialyte) 1,000 Ml Solution, 100 ML PO Q6 Y for VOMITTING, # 1000 ML Prov:KATLYN NEWTON PA-C 10/22/16 Ondansetron Hcl* (Zofran*) 4 Mg Tablet, 4 MG PO Q6H for NAUSEA AND/OR VOMITING, #30 TAB Prov:KATLYN NEWTON PA-C 10/22/16 Famotidine* (Pepcid*) 20 Mg Tablet, 20 MG PO BID, #30 TAB Prov:AMPARO WONG PA-C 09/16/16 Acetaminophen* (Tylophen*) 500 Mg Capsule, 1 CAP PO Q6H Y for PAIN AND OR ELEVATED TEMP, #10 CAP Prov:TEE FISHMAN MD 09/16/16 Ondansetron (Ondansetron Odt) 8 Mg Tab.rapdis, 8 MG PO Q6H Y for NAUSEA AND/OR VOMITING, #8 TAB Prov:TEE FISHMAN MD 09/16/16 Ondansetron Hcl* (Zofran*) 4 Mg Tablet, 4 MG PO Q6H for NAUSEA AND/OR VOMITING, #30 TAB Prov:Kaylah Rodriguez PA-C 05/27/16 Hydrocodone Bit-Acetaminophen* ([place]*) 5-325 Mg Tab, 1 TAB PO Q6 Y for PAIN, # 7 TAB Prov:GEORGE MILLER DO 02/20/16 Loperamide Hcl* (Imodium*) 2 Mg Capsule, 2 MG PO .AFTER EA LOOSE BM Y for DIARRHEA, #10 TAB Prov:GEORGE MILLER DO 02/20/16 Allergies Allergies: Coded Allergies: No Known Drug Allergies (Verified Allergy, Unknown, 05/21/17) PMhx/Soc Medical and Surgical Hx: pt denies Surgical Hx History of Surgery: No Anesthesia Reaction: No Hx Neurological Disorder: No Hx Respiratory Disorders: No Hx Cardiac Disorders: No Hx Psychiatric Problems: No Hx Miscellaneous Medical Probl: Yes (GASTRITIS) Hx Alcohol Use: Yes (SOMETIMES) Hx Substance Use: Yes (MARIJUANA) Hx Tobacco Use: Yes Smoking Status: Current every day smoker Physical Exam Vitals Vital Signs Date Time Temp Pulse Resp B/P Pulse Ox O2 Delivery O2 Flow Rate FiO2 05/21/17 08:08 98.1 70 18 130/89 99 Physical Exam Const: [id number], well-nourished. In no acute distress. Head: Atraumatic, normocephalic Eyes: Normal Conjunctiva without injection ENT: Normal external ear, nose and mouth. Neck: Full range of motion. No meningismus. Resp: Clear to auscultation bilaterally. No wheezing, rhonchi, rales, or crackles. No accessory muscle use. No retractions. Cardio: Regular rate and rhythm, no murmurs Skin: No petechiae or rashes Back: No midline tenderness. No CVA tenderness Ext: No cyanosis, or edema. Cap refill less than 2 seconds. Distal pulses intact bilaterally. Tenderness to palpation of the right inferior patella. No erythema, edema, deformities noted. No warmth to touch. Patient has full range of motion with flexion and extension. Patient was ambulating without difficulty. No limping noted. Clicking sensation felt upon palpation of right knee while patient was flexing and extending his right knee. Neur: Awake and alert. Normal gait and coordination. Muscle strength 5/5. Sensation intact bilaterally. Psych: Normal Mood and Affect Procedures/MDM 31-year-old male patient with a past medical history of gastritis and alcoholism presents to the ED complaining of right knee pain that started yesterday. Patient is afebrile and nontoxic-appearing. Patient has normal vital signs. A right knee x-ray was ordered to further evaluate patient. PROCEDURE: Right knee x-ray CLINICAL INDICATION: 31-year-old male with painful right knee. TECHNIQUE: AP, lateral and oblique views of the knee were obtained. COMPARISON: No. FINDINGS: The soft tissues and bony elements are normal. No joint space effusion is identified. IMPRESSION: 1. Normal right knee. Scar wrap was placed for patient's right knee to help with compression. Splint Assessment: Neurovascularly intact scar wrap placement with good fit. Differentials include meniscus or ligamentous injury that cannot be ruled out at this time. Patient's extremity symptoms have stabilized while they have been evaluated in the department and are appropriate for outpatient follow up for further evaluation with MRI of right knee pain. No evidence of fractures, dislocations, compartment syndrome, neurologic injury, vascular injury, open joint, open fracture, tendon laceration, septic arthritis, osteomyelitis, DVT, foreign body, or other emergent conditions. Discharge medications: Tylenol Follow up with primary care physician in 1-2 days for a referral to see an orthopedic physician for further evaluation problem. Instructed patient to return to the ED sooner for any worsening symptoms. Patient's questions were answered. Patient understood and agreed with discharge plan. Patient discharged stable. Departure Diagnosis: Primary Impression: Knee pain Chronicity: acute Laterality: right Qualified Code: M25.561 - Acute pain of right knee Condition: Stable Patient Instructions: Knee Pain, Meniscus Injury (Possible), Knee Pain, Uncertain Cause Referrals: LALITHA NUR MD (PCP) [facility] YOU HAVE RECEIVED A MEDICAL SCREENING EXAM AND THE RESULTS INDICATE THAT YOU DO NOT HAVE A CONDITION THAT REQUIRES URGENT TREATMENT IN THE EMERGENCY DEPARTMENT. FURTHER EVALUATION AND TREATMENT OF YOUR CONDITION CAN WAIT UNTIL YOU ARE SEEN IN YOUR DOCTORS OFFICE WITHIN THE NEXT 1-2 DAYS. IT IS YOUR RESPONSIBILITY TO MAKE AN APPOINTMENT FOR FOLOW-UP CARE. IF YOU HAVE A PRIMARY DOCTOR --you should call your primary doctor and schedule an appointment IF YOU DO NOT HAVE A PRIMARY DOCTOR YOU CAN CALL OUR PHYSICIAN REFERRAL HOTLINE AT IF YOU CAN NOT AFFORD TO SEE A PHYSICIAN YOU CAN CHOSE FROM THE FOLLOWING [facility] [address] [facility]. [facility] [address] [facility] [facility] [address] [facility] [facility] [address] [facility] [address] [facility]. [facility]. [address] [facility]. [facility] YOU HAVE RECEIVED A MEDICAL SCREENING EXAM AND THE RESULTS INDICATE THAT YOU DO NOT HAVE A CONDITION THAT REQUIRES URGENT TREATMENT IN THE EMERGENCY DEPARTMENT. FURTHER EVALUATION AND TREATMENT OF YOUR CONDITION CAN WAIT UNTIL YOU ARE SEEN IN YOUR DOCTORS OFFICE WITHIN THE NEXT 1-2 DAYS. IT IS YOUR RESPONSIBILITY TO MAKE AN APPOINTMENT FOR FOLOW-UP CARE. IF YOU HAVE A PRIMARY DOCTOR --you should call your primary doctor and schedule and appointment IF YOU DO NOT HAVE A PRIMARY DOCTOR YOU CAN CALL OUR PHYSICIAN REFERRAL HOTLINE AT . IF YOU CAN NOT AFFORD TO SEE A PHYSICIAN YOU CAN CHOSE FROM THE FOLLOWING [facility] INSTITUTIONS: [facility] [address] [place] [address] [facility] [address] [place] [address] [facility] [address] [place] [address] [facility] Urgent Care 7 a.m.- 11 p.m. Every Day of the Week NO APPOINTMENT OR AUTHORIZATION NEEDED SO [facility] Hours: Mon-Fri 9:00 AM - 5:00 PM Additional Instructions: Call your primary care doctor TOMORROW for an appointment during the next 2-3 days for a referral to see an orthopedic physician for further evaluation and treatment.See the doctor sooner or return here if your condition worsens before your appointment time - fever, increased redness, no range of motion of knee, swelling, etc. AMPARO WONG PA-C May 21, 2017 09:49
== END 2017-05-21 10:00 | disposition home or self-care (01) ==
LOC: FTE 08:06
DX: M25.561 Pain in right knee (principal); F17.210 Nicotine dependence, cigarettes, uncomplicated
CPT/HCPCS: 73562; Z7502

== ENCOUNTER 2017-05-23 08:05 | Emergency (ER) | payer OTHER ==
[~2017-05-23] VITALS: Ht 180.3 cm; Wt 74.5 kg
[2017-05-23 08:08] VITALS: Ht 180.3 cm; Wt 74.5 kg
[2017-05-23] MEDS ORDERED: SOD CHLORIDE 0.9% 1,000 ML IV STA (08:29)
[2017-05-23] MEDS ORDERED: ONDANSETRON 4 MG INJ IV STA (08:29)
[2017-05-23] MEDS ORDERED: FAMOTIDINE 20 MG INJ IV STA (08:29)
--- NOTE | 2017-05-23 08:33 | ERD ---
ER Documentation Chief Complaint Date/Time DATE: 05/23/17 TIME: 08:30 Chief Complaint CAME IN VIA INTAKE WITH NAUSEA, VOMITING, ABDOMINAL PAIN HPI Patient is a 31-year-old male who presents with sudden onset, intermittent, moderate nonbloody emesis since 9:00 last night. He states that he was drinking a lot of beer yesterday. He reports having diarrhea, but denies dark stool or bloody stool. He reports having epigastric pain. He denies fever. Denies back pain. Patient has multiple ER visits for vomiting and abdominal pain, and states that these usually occur in the setting of heavy alcohol use. He denies drinking daily. He reports smoking cannabis, denies other drugs. ROS All systems reviewed and are negative except as per history of present illness. Medications Home Meds Active Scripts Famotidine* (Pepcid*) 20 Mg Tablet, 20 MG PO BID for 10 Days, TAB Prov:NAHOMI HOFFMAN MD 05/23/17 Ondansetron (Ondansetron Odt) 4 Mg Tab.rapdis, 4 MG PO Q6H Y for NAUSEA AND/OR VOMITING, #15 TAB Prov:NAHOMI HOFFMAN MD 05/23/17 Acetaminophen* (Tylophen*) 500 Mg Capsule, 1 CAP PO Q6H Y for PAIN AND OR ELEVATED TEMP, #20 CAP Prov:AMPARO WONG PA-C 05/21/17 Ondansetron (Ondansetron Odt) 4 Mg Tab.rapdis, 4 MG PO Q6H Y for NAUSEA AND/OR VOMITING, #15 TAB Prov:ASHLEY JHA 04/08/17 Acetaminophen* (Tylophen*) 500 Mg Capsule, 1 CAP PO Q6H Y for PAIN AND OR ELEVATED TEMP, #20 CAP Prov:PASILARAKAN SCHULTZ F 04/08/17 Ondansetron Hcl* (Zofran*) 4 Mg Tablet, 4 MG PO Q8H Y for NAUSEA AND/OR VOMITING , #30 TAB Prov:PASILABAN,PGEGYAR F 04/08/17 Famotidine* (Pepcid*) 20 Mg Tablet, 40 MG PO DAILY for 30 Days, TAB Prov:PASILABAN,PEGGYAR F 04/08/17 Loperamide Hcl* (Imodium*) 2 Mg Capsule, 2 MG PO .AFTER EA LOOSE BM Y for DIARRHEA, #10 TAB Prov:KATLYN NEWTON PA-C 10/22/16 Famotidine* (Pepcid*) 20 Mg Tablet, 20 MG PO BID for 14 Days, TAB Prov:KATLYN NEWTON PA-C 10/22/16 Electrolyte,Oral (Pedialyte) 1,000 Ml Solution, 100 ML PO Q6 Y for VOMITTING, # 1000 ML Prov:KATLYN NEWTON PA-C 10/22/16 Ondansetron Hcl* (Zofran*) 4 Mg Tablet, 4 MG PO Q6H for NAUSEA AND/OR VOMITING, #30 TAB Prov:KATLYN NEWTON PA-C 10/22/16 Famotidine* (Pepcid*) 20 Mg Tablet, 20 MG PO BID, #30 TAB Prov:AMPARO WONG PA-C 09/16/16 Acetaminophen* (Tylophen*) 500 Mg Capsule, 1 CAP PO Q6H Y for PAIN AND OR ELEVATED TEMP, #10 CAP Prov:TEE FISHMAN MD 09/16/16 Ondansetron (Ondansetron Odt) 8 Mg Tab.rapdis, 8 MG PO Q6H Y for NAUSEA AND/OR VOMITING, #8 TAB Prov:TEE FISHMAN MD 09/16/16 Ondansetron Hcl* (Zofran*) 4 Mg Tablet, 4 MG PO Q6H for NAUSEA AND/OR VOMITING, #30 TAB Prov:Kaylah Rodriguez PA-C 05/27/16 Hydrocodone Bit-Acetaminophen* ([place]*) 5-325 Mg Tab, 1 TAB PO Q6 Y for PAIN, # 7 TAB Prov:GEORGE MILLER DO 02/20/16 Loperamide Hcl* (Imodium*) 2 Mg Capsule, 2 MG PO .AFTER EA LOOSE BM Y for DIARRHEA, #10 TAB Prov:GEORGE MILLER DO 02/20/16 Allergies Allergies: Coded Allergies: No Known Drug Allergies (Verified Allergy, Unknown, 05/21/17) PMhx/Soc Past medical history: None Past surgical history: None Social history: Drinks alcohol heavily, smokes cannabis, denies tobacco or other drugs History of Surgery: No Anesthesia Reaction: No Hx Neurological Disorder: No Hx Respiratory Disorders: No Hx Cardiac Disorders: No Hx Psychiatric Problems: No Hx Miscellaneous Medical Probl: Yes (GASTRITIS) Hx Alcohol Use: Yes (SOMETIMES) Hx Substance Use: Yes (MARIJUANA) Hx Tobacco Use: Yes FmHx Noncontributory Physical Exam Vitals Vital Signs Date Time Temp Pulse Resp B/P Pulse Ox O2 Delivery O2 Flow Rate FiO2 05/23/17 10:00 97.9 58 16 159/96 96 Room Air 05/23/17 08:08 97.7 64 18 175/114 96 Physical Exam Const: Alert, no acute distress Head: Atraumatic Eyes: Normal Conjunctiva, No pallor, no icterus ENT: Normal External Ears, Nose and Mouth. Mucous membranes moist, no tongue fasciculations Neck: Full range of motion..~ No meningismus. Resp: Clear to auscultation bilaterally, No wheezes, no rales Cardio: Regular rate and rhythm, no murmurs Abd: Soft, Mild epigastric tenderness, no rebound, no guarding, non distended. Skin: No petechiae or rashes Back: No midline or flank tenderness Ext: No cyanosis, or edema Neur: Awake and alert, Cranial nerves II through XII intact bilaterally, strength and sensation full in 4 extremities, no tremor Psych: Normal Mood and Affect Result Diagram: 05/23/1782905/23/17 0830 Results 24 hrs Laboratory Tests Test 05/23/17 08:30 White Blood Count 10.110^3/ul Red Blood Count 5.1310^6/ul Hemoglobin 16.2g/dl Hematocrit 45.9% Mean Corpuscular Volume 89.5fl Mean Corpuscular Hemoglobin 31.6pg Mean Corpuscular Hemoglobin Concent 35.3g/dl Red Cell Distribution Width 11.3% Platelet Count 36871^3/UL Mean Platelet Volume 10.4fl Neutrophils % 82.2% Lymphocytes % 12.0% Monocytes % 4.6% Eosinophils % 0.4% Basophils % 0.3% Nucleated Red Blood Cells % 0.0/100WBC Neutrophils # 8.310^3/ul Lymphocytes # 1.210^3/ul Monocytes # 0.510^3/ul Eosinophils # 0.010^3/ul Basophils # 0.010^3/ul Nucleated Red Blood Cells # 0.010^3/ul Sodium Level 140mmol/L Potassium Level 3.4mmol/L Chloride Level 98mmol/L Carbon Dioxide Level 29mmol/L Anion Gap 16 Blood Urea Nitrogen 11mg/dl Creatinine 0.84mg/dl Glucose Level 145mg/dl Calcium Level 10.2mg/dl Total Bilirubin 0.5mg/dl Direct Bilirubin 0.00mg/dl Indirect Bilirubin 0.5mg/dl Aspartate Amino Transf (AST/SGOT) 46IU/L Alanine Aminotransferase (ALT/SGPT) 51IU/L Alkaline Phosphatase 75IU/L Total Protein 8.7g/dl Albumin 5.0g/dl Globulin 3.70g/dl Albumin/Globulin Ratio 1.35 Lipase 197U/L Current Medications Medications (Trade) Dose Ordered Sig/Js Route PRN Reason Start Time Stop Time Status Last Admin Dose Admin Sodium Chloride (NS) 1,000 ml @ 1,000 mls/hr Q1H STAT IV 05/23/17 08:29 05/23/17 09:28 DC 05/23/17 08:39 Ondansetron HCl (Zofran Inj) 4 mg ONCE STAT IV 05/23/17 08:29 05/23/17 08:31 DC 05/23/17 08:37 Famotidine (Pepcid Iv) 20 mg ONCE STAT IV 05/23/17 08:29 05/23/17 08:31 DC 05/23/17 08:37 Acetaminophen 1000 mg 1,000 mg ONCE STAT PO 05/23/17 09:57 05/23/17 09:58 DC 05/23/17 10:28 Sodium Chloride (NS) 1,000 ml @ 1,000 mls/hr Q1H ONCE IV 05/23/17 10:00 05/23/17 10:59 DC 05/23/17 10:28 Metoclopramide HCl (Reglan) 10 mg ONCE ONCE IV 05/23/17 10:30 05/23/17 10:31 DC 05/23/17 10:37 Procedures/MDM MDM: Patient is a 31-year-old male who presents with epigastric pain, nausea and vomiting after heavy drinking yesterday. Patient has multiple ER visits for similar symptoms, which she states always occur in the setting of heavy drinking. Patient also smokes cannabis, which may be contributing to cyclical vomiting syndrome. There is no report of coffee-ground emesis or hematemesis. The patient has not had dark stools. He is afebrile and has a relatively benign abdominal exam. She was given IV fluids, antiemetics and antacid medication. He was able to tolerate oral intake without vomiting. He stated he felt much better. He had no significant electrolyte abnormalities, no evidence of pancreatitis. He did have hemoconcentration suggestive dehydration. He was given 2 L of fluid, and will be discharged with antiemetics and Pepcid for presumed alcoholic gastritis. Departure Diagnosis: Primary Impression: Nausea and vomiting Vomiting type: unspecified Vomiting Intractability: non-intractable Qualified Code: R11.2 - Non-intractable vomiting with nausea, unspecified vomiting type Additional Impression: Alcoholic gastritis Chronicity: acute Gastritis bleeding: without bleeding Qualified Code: K29.20 - Acute alcoholic gastritis without hemorrhage Condition: NAHOMI Hope MD May 23, 2017 08:33
[2017-05-23 08:59] LABS: BASOPHILS % 0.3 % (0.0-2.0); EOSINOPHILS % 0.4 % (0.0-7.0); HEMATOCRIT 45.9 % (42.0-52.0); HEMOGLOBIN 16.2 g/dl (14.0-18.0); LYMPHOCYTES # 1.2 10^3/ul (0.8-2.9); MEAN CORPUSCULAR HEMOGLOBIN 31.6 pg (29.0-33.0); MEAN CORPUSCULAR HGB CONC 35.3 g/dl (32.0-37.0); MEAN CORPUSCULAR VOLUME 89.5 fl (82.0-101.0); MEAN PLATELET VOLUME 10.4 fl (7.4-10.4); MONOCYTE # 0.5 10^3/ul (0.3-0.9); MONOCYTES % 4.6 % (0.0-11.0); NEUTROPHIL # 8.3 10^3/ul (1.6-7.5); NEUTROPHILS % 82.2 % (39.0-77.0); PLATELET COUNT 210 10^3/UL (140-415); RED BLOOD COUNT 5.13 10^6/ul (4.70-6.10); RED CELL DISTRIBUTION WIDTH 11.3 % (11.5-14.5); WHITE BLOOD COUNT 10.1 10^3/ul (4.8-10.8)
[2017-05-23 09:07] LABS: ALBUMIN/GLOBULIN RATIO 1.35; BILIRUBIN,INDIRECT 0.5 mg/dl (0-1.1); BILIRUBIN,TOTAL 0.5 mg/dl (0.2-1.3); CALCIUM 10.2 mg/dl (8.4-10.2); CREATININE 0.84 mg/dl (0.61-1.24); POTASSIUM 3.4 mmol/L (3.5-5.1); TOTAL PROTEIN 8.7 g/dl (6.1-8.1)
[2017-05-23] MEDS ORDERED: ACETAMINOPHEN 500 MG TAB PO STA (09:57)
[2017-05-23 10:00] VITALS: BP 159/96; PULSE 58; RESP 16; TEMP 97.9
[2017-05-23] MEDS ORDERED: SOD CHLORIDE 0.9% 1,000 ML IV ONE (10:00)
[2017-05-23] MEDS ORDERED: METOCLOPRAMIDE 10 MG INJ IV ONE (10:30)
[2017-05-23] MEDS ORDERED: FAMO-96 PO (12:18)
[2017-05-23] MEDS ORDERED: ONDA4TAB14 PO (12:18)
== END 2017-05-23 12:15 | disposition home or self-care (01) ==
LOC: E/R 08:05
DX: K29.20 Alcoholic gastritis without bleeding (principal)
CPT/HCPCS: 36415; 80053; 83690; 85025; 96374; 96375; J2405; J2765; J7030; Z7502; Z7610

== ENCOUNTER 2017-05-31 01:11 | Emergency (ER) | payer OTHER ==
[~2017-05-31] VITALS: Ht 172.7 cm; Wt 72.0 kg
[2017-05-31 01:16] VITALS: Ht 172.7 cm; Wt 72.0 kg
[2017-05-31] MEDS ORDERED: FAMOTIDINE 20 MG INJ IV STA (03:14)
[2017-05-31] MEDS ORDERED: ONDANSETRON 4 MG INJ IV STA (03:14)
[2017-05-31] MEDS ORDERED: SOD CHLORIDE 0.9% 1,000 ML IV STA (03:14)
[2017-05-31] MEDS ORDERED: LIDOCAINE/MYLANTA 40 ML BTL PO STA (03:14)
[2017-05-31 03:57] VITALS: BP 151/87; PULSE 51; RESP 20; TEMP 97.7
[2017-05-31 04:08] LABS: BASOPHILS % 0.3 % (0.0-2.0); HEMATOCRIT 49.1 % (42.0-52.0); HEMOGLOBIN 17.1 g/dl (14.0-18.0); LYMPHOCYTES # 0.9 10^3/ul (0.8-2.9); MEAN CORPUSCULAR HEMOGLOBIN 30.9 pg (29.0-33.0); MEAN CORPUSCULAR HGB CONC 34.8 g/dl (32.0-37.0); MEAN CORPUSCULAR VOLUME 88.8 fl (82.0-101.0); MEAN PLATELET VOLUME 10.2 fl (7.4-10.4); MONOCYTE # 0.6 10^3/ul (0.3-0.9); MONOCYTES % 5.4 % (0.0-11.0); NEUTROPHIL # 8.8 10^3/ul (1.6-7.5); NEUTROPHILS % 84.9 % (39.0-77.0); PLATELET COUNT 271 10^3/UL (140-415); RED BLOOD COUNT 5.53 10^6/ul (4.70-6.10); RED CELL DISTRIBUTION WIDTH 11.5 % (11.5-14.5); WHITE BLOOD COUNT 10.4 10^3/ul (4.8-10.8)
[2017-05-31 04:30] LABS: ALBUMIN 5.6 g/dl (3.3-4.9); ALBUMIN/GLOBULIN RATIO 1.55; BILIRUBIN,INDIRECT 0.7 mg/dl (0-1.1); BILIRUBIN,TOTAL 0.7 mg/dl (0.2-1.3); CALCIUM 10.7 mg/dl (8.4-10.2); CREATININE 0.82 mg/dl (0.61-1.24); TOTAL PROTEIN 9.2 g/dl (6.1-8.1)
[2017-05-31] MEDS ORDERED: METOCLOPRAMIDE 10 MG INJ IV ONE (05:00)
[2017-05-31] MEDS ORDERED: METO10TA92 PO (05:36)
[2017-05-31] MEDS ORDERED: FAMO-96 PO (05:36)
--- NOTE | 2017-05-31 05:37 | ERD ---
ER Documentation Chief Complaint Date/Time DATE: 05/31/17 TIME: 05:37 Chief Complaint actively vomiting since 7 pm last night - vomiting now; w/ abd pain HPI 31-year-old male with a history of gastritis and frequently visits to the ER with vomiting presenting to the ER today with complaints of epigastric pain associated with nausea and vomiting. He states he ate a few tacos last night with spicy sauce which he is not supposed to. Later he had a few cigarettes. After that he started having worsening burning epigastric pain, nonradiating, 10 out of 10, associated with nonbloody and nonbilious vomiting. He has had 3 episodes of loose stools that are nonbloody without melena. He denies any fevers or chills. He denies drinking last night. ROS All systems reviewed and are negative except as per history of present illness. Medications Home Meds Active Scripts Famotidine* (Pepcid*) 20 Mg Tablet, 20 MG PO BID for 4 Days, TAB Prov:LAKESHIA BARAJAS MD 05/31/17 Metoclopramide* (Reglan*) 10 Mg Tablet, 10 MG PO Q6 Y for NAUSEA AND/OR VOMITING , #10 TAB Prov:LAKESHIA BARAJAS MD 05/31/17 Acetaminophen* (Tylophen*) 500 Mg Capsule, 1 CAP PO Q6H Y for PAIN AND OR ELEVATED TEMP, #20 CAP Prov:RAKAN BLACKWELL 04/08/17 Famotidine* (Pepcid*) 20 Mg Tablet, 20 MG PO BID, #30 TAB Prov:AMPARO WONG PA-C 09/16/16 Ondansetron Hcl* (Zofran*) 4 Mg Tablet, 4 MG PO Q6H for NAUSEA AND/OR VOMITING, #30 TAB Prov:Kaylah Rodriguez PA-C 05/27/16 Discontinued Scripts Famotidine* (Pepcid*) 20 Mg Tablet, 20 MG PO BID for 10 Days, TAB Prov:NAHOMI HOFFMAN MD 05/23/17 Ondansetron (Ondansetron Odt) 4 Mg Tab.rapdis, 4 MG PO Q6H Y for NAUSEA AND/OR VOMITING, #15 TAB Prov:NAHOMI HOFFMAN MD 05/23/17 Acetaminophen* (Tylophen*) 500 Mg Capsule, 1 CAP PO Q6H Y for PAIN AND OR ELEVATED TEMP, #20 CAP Prov:AMPARO WONG PA-C 05/21/17 Ondansetron (Ondansetron Odt) 4 Mg Tab.rapdis, 4 MG PO Q6H Y for NAUSEA AND/OR VOMITING, #15 TAB Prov:ASHLEY JHA 04/08/17 Ondansetron Hcl* (Zofran*) 4 Mg Tablet, 4 MG PO Q8H Y for NAUSEA AND/OR VOMITING , #30 TAB Prov:RAKAN BLACKWELL 04/08/17 Famotidine* (Pepcid*) 20 Mg Tablet, 40 MG PO DAILY for 30 Days, TAB Prov:PASILABANRAAKN F 04/08/17 Loperamide Hcl* (Imodium*) 2 Mg Capsule, 2 MG PO .AFTER EA LOOSE BM Y for DIARRHEA, #10 TAB Prov:KATLYN NEWTON PA-C 10/22/16 Famotidine* (Pepcid*) 20 Mg Tablet, 20 MG PO BID for 14 Days, TAB Prov:KATLYN NEWTON PA-C 10/22/16 Electrolyte,Oral (Pedialyte) 1,000 Ml Solution, 100 ML PO Q6 Y for VOMITTING, # 1000 ML Prov:KATLYN NEWTON PA-C 10/22/16 Ondansetron Hcl* (Zofran*) 4 Mg Tablet, 4 MG PO Q6H for NAUSEA AND/OR VOMITING, #30 TAB Prov:KATLYN NEWTON PA-C 10/22/16 Acetaminophen* (Tylophen*) 500 Mg Capsule, 1 CAP PO Q6H Y for PAIN AND OR ELEVATED TEMP, #10 CAP Prov:TEE FISHMAN MD 09/16/16 Ondansetron (Ondansetron Odt) 8 Mg Tab.rapdis, 8 MG PO Q6H Y for NAUSEA AND/OR VOMITING, #8 TAB Prov:TEE FISHMAN MD 09/16/16 Hydrocodone Bit-Acetaminophen* ([place]*) 5-325 Mg Tab, 1 TAB PO Q6 Y for PAIN, # 7 TAB Prov:GEORGE MILLER DO 02/20/16 Loperamide Hcl* (Imodium*) 2 Mg Capsule, 2 MG PO .AFTER EA LOOSE BM Y for DIARRHEA, #10 TAB Prov:GEORGE MILLER DO 02/20/16 Allergies Allergies: Coded Allergies: No Known Drug Allergies (Verified Allergy, Unknown, 05/21/17) PMhx/Soc History of Surgery: No Anesthesia Reaction: No Hx Neurological Disorder: No Hx Respiratory Disorders: No Hx Cardiac Disorders: No Hx Psychiatric Problems: No Hx Miscellaneous Medical Probl: Yes (GASTRITIS) Hx Alcohol Use: Yes (SOMETIMES) Hx Substance Use: Yes (MARIJUANA) Hx Tobacco Use: Yes Smoking Status: Current every day smoker FmHx Family History: No diabetes Physical Exam Vitals Vital Signs Date Time Temp Pulse Resp B/P Pulse Ox O2 Delivery O2 Flow Rate FiO2 05/31/17 03:57 97.7 51 20 151/87 99 Room Air 05/31/17 01:16 97.7 77 20 162/107 97 Physical Exam Const: Nontoxic, actively retching, no diaphoresis Head: Atraumatic Eyes: Normal Conjunctiva ENT: Dry mucous membranes Neck: Full range of motion..~ No meningismus. Resp: Clear to auscultation bilaterally Cardio: Regular rate and rhythm, no murmurs Abd: Soft, non tender, non distended. Normal bowel sounds Skin: No petechiae or rashes Back: No midline or flank tenderness Ext: No cyanosis, or edema Neur: Awake and alertAnd oriented 3, cranial nerves intact, strength and sensations intact in all 4 extremities Psych: Normal Mood and Affect Result Diagram: 05/31/17 0337 05/31/17 0337 Results 24 hrs Laboratory Tests Test 05/31/17 03:37 White Blood Count 10.410^3/ul Red Blood Count 5.5310^6/ul Hemoglobin 17.1g/dl Hematocrit 49.1% Mean Corpuscular Volume 88.8fl Mean Corpuscular Hemoglobin 30.9pg Mean Corpuscular Hemoglobin Concent 34.8g/dl Red Cell Distribution Width 11.5% Platelet Count 01685^3/UL Mean Platelet Volume 10.2fl Neutrophils % 84.9% Lymphocytes % 9.0% Monocytes % 5.4% Eosinophils % 0.0% Basophils % 0.3% Nucleated Red Blood Cells % 0.0/100WBC Neutrophils # 8.810^3/ul Lymphocytes # 0.910^3/ul Monocytes # 0.610^3/ul Eosinophils # 0.010^3/ul Basophils # 0.010^3/ul Nucleated Red Blood Cells # 0.010^3/ul Sodium Level 146mmol/L Potassium Level 4.0mmol/L Chloride Level 100mmol/L Carbon Dioxide Level 26mmol/L Anion Gap 24 Blood Urea Nitrogen 15mg/dl Creatinine 0.82mg/dl Glucose Level 139mg/dl Calcium Level 10.7mg/dl Total Bilirubin 0.7mg/dl Direct Bilirubin 0.00mg/dl Indirect Bilirubin 0.7mg/dl Aspartate Amino Transf (AST/SGOT) 43IU/L Alanine Aminotransferase (ALT/SGPT) 55IU/L Alkaline Phosphatase 78IU/L Total Protein 9.2g/dl Albumin 5.6g/dl Globulin 3.60g/dl Albumin/Globulin Ratio 1.55 Lipase 159U/L Current Medications Medications (Trade) Dose Ordered Sig/Js Route PRN Reason Start Time Stop Time Status Last Admin Dose Admin Sodium Chloride (NS) 1,000 ml @ 1,000 mls/hr Q1H STAT IV 05/31/17 03:14 05/31/17 04:13 DC 05/31/17 03:41 Ondansetron HCl (Zofran Inj) 4 mg ONCE STAT IV 05/31/17 03:14 05/31/17 03:15 DC 05/31/17 03:41 Famotidine (Pepcid Iv) 20 mg ONCE STAT IV 05/31/17 03:14 05/31/17 03:15 DC 05/31/17 03:41 Miscellaneous Medication (Gi Cocktail (2)) 40 ml ONCE STAT PO 05/31/17 03:14 05/31/17 03:15 DC 05/31/17 03:41 Metoclopramide HCl (Reglan) 10 mg ONCE ONCE IV 05/31/17 05:00 05/31/17 05:01 DC 05/31/17 05:00 Procedures/MDM Labs CBC: no anemia or evidence of infection CMP:Mild hypernatremia, Lipase: no evidence of pancreatitis Patient is presenting with epigastric pain with associated vomiting. Vitals are stable and he is afebrile. Differential includes but is not limited to biliary colic, biliary obstruction, acute cholecystitis, pancreatitis, hepatitis , lower lobe pneumonia, colitis, cardiac pathology, aortic dissection, ureterolithiasis, pyelonephritis. However I have a low suspicion for these. I suspect exacerbation of gastritis secondary to what he ate last night. Labs were ordered to evaluate for above and were unremarkable other than mild sodium elevation, consistent with dehydration. 1 L of IV fluids was given. Multiple doses of antiemetics were also given with improvement of his symptoms. I do not think imaging is necessary at this time, as my suspicion for acute surgical abdomen is very low. At this moment the etiology of the abdominal pain is unknown. The patients vitals have been noted and are currently afebrile and hemodynamically stable. The workup, physical exam and observation period do not indicate a serious cause to the pain. The patients symptoms have improved while in the ED and the patient remains hemodynamically stable. Patient was able to tolerate PO. The current assessment has been explained to the patient including the fact that the etiology of the pain cannot be ruled out with certainty. Patient was advised that in the event this is early in the process of a more serious condition they may expect their symptoms to worsen and if so to return to the emergency department immediately. Patient was advised to follow up with primary care physician as soon as possible for re-evaluation within the next 1- 2 days. All of the patients questions were answered. Patient verbalized understanding of plan and agrees. Advised to return to the ER for reevaluation within 12 hours if symptoms worsen. Departure Diagnosis: Primary Impression: Abdominal pain Abdominal location: epigastric Qualified Code: R10.13 - Epigastric pain Additional Impression: Nausea and vomiting Vomiting type: cyclical vomiting Vomiting Intractability: non-intractable Qualified Code: G43.A0 - Non-intractable cyclical vomiting with nausea Condition: Stable Patient Instructions: Abdominal Pain, Nausea and Vomiting-Adult LAKESHIA BARAJAS MD May 31, 2017 05:37
== END 2017-05-31 06:16 | disposition home or self-care (01) ==
LOC: E/R 01:11
DX: R10.13 Epigastric pain (principal); G43.A0 Cyclical vomiting, in migraine, not intractable; F17.210 Nicotine dependence, cigarettes, uncomplicated
CPT/HCPCS: 36415; 80053; 83690; 85025; 96374; 96375; J2405; J2765; J7030; Z7502; Z7610